=== PATIENT | male | born 1970 | race Caucasian/White ===

== ENCOUNTER 2023-12-12 04:34 | Emergency (ER) | payer OTHER, SELFPAY ==
[2023-12-12 04:35] VITALS: BP 142/94
[2023-12-12 04:58] LABS: % Basophils 0.7 % (0-2); % Eosinophils 2.3 % (0-6); % Immature Granulocytes 0.3 % (0-0.5); % Lymphocytes 32.6 % (20.5-51.1); % Monocytes 10.2 % (1.7-9.3); % Neutrophils 53.9 % (42.2-75.2); Absolute Eosinophils 0.1 10^3/uL (0-0.7); Absolute Monocytes 0.6 10^3/uL (0.1-0.6); Absolute Neutrophils 3.2 10^3/uL (1.4-6.5); Hematocrit 39.8 % (39.0-52.0); Hemoglobin 14.2 g/dL (13.0-18.0); Mean Corp Hgb Conc. 35.7 g/dL (33.0-37.0); Mean Corpuscular Volume 86.9 fL (80.0-94.0); Mean Platelet Volume 10.1 fL (7.4-10.4); Nucleated Red Blood Cells % 0 % (-); Platelet Count 240 10^3/uL (130-400); Red Blood Cell Count 4.58 10^6/uL (4.70-6.10); Red Cell Dist. Width 11.9 % (11.5-14.5)
[2023-12-12 05:23] LABS: Troponin I < 0.012 ng/ml
[2023-12-12 05:48] LABS: ALT (SGPT) 61 U/L (0-50); AST (SGOT) 97 U/L (17-59); Albumin 4.1 g/dl (3.5-5.0); Alkaline Phosphatase 87 U/L (38-126); Blood Urea Nitrogen 17 mg/dl (9-20); Calcium 9.2 mg/dl (8.4-10.2); Carbon Dioxide 24 mmol/L (22-30); Chloride 107 mmol/L (98-107); Glucose 101 mg/dl (70-99); Lipase 218 U/L (23-300); Potassium 3.9 mmol/L (3.5-5.1); Sodium 142 mmol/L (135-145); Total Bilirubin 0.6 mg/dl (0.2-1.3); Total Protein 7.4 g/dl (6.3-8.2); eGFR > 60.00
== END 2023-12-12 05:04 ==
LOC: EMR 04:34
PROVIDERS: Emergency Medicine; EMERGENCY PHYSICIAN Emergency Medicine
DX: R10.10 Upper abdominal pain, unspecified (principal); M54.9 Dorsalgia, unspecified
CPT/HCPCS: 80053; 83690; 84484; 85025; 93005

== ENCOUNTER 2024-10-21 11:43 | Emergency (ER) | payer OTHER, SELFPAY ==
[2024-10-21 11:51] VITALS: BP 119/81
[2024-10-21 12:10] LABS: % Basophils 0.7 % (0-2); % Eosinophils 0.7 % (0-6); % Immature Granulocytes 0.6 % (0-0.5); % Lymphocytes 26.4 % (20.5-51.1); % Monocytes 16.5 % (1.7-9.3); % Neutrophils 55.1 % (42.2-75.2); Absolute Lymphocytes 1.4 10^3/uL (1.2-3.4); Absolute Monocytes 0.9 10^3/uL (0.1-0.6); Hematocrit 42.1 % (39.0-52.0); Hemoglobin 14.8 g/dL (13.0-18.0); Mean Corp Hgb Conc. 35.2 g/dL (33.0-37.0); Mean Corpuscular Hgb 31.4 pg (27.0-31.0); Mean Corpuscular Volume 89.2 fL (80.0-94.0); Mean Platelet Volume 9.8 fL (7.4-10.4); Nucleated Red Blood Cells % 0 % (-); Platelet Count 207 10^3/uL (130-400); Red Blood Cell Count 4.72 10^6/uL (4.70-6.10); Red Cell Dist. Width 12.1 % (11.5-14.5); White Blood Cell Count 5.4 10^3/uL (4.8-10.8)
[2024-10-21 12:30] LABS: ALT (SGPT) 54 U/L (0-50); AST (SGOT) 33 U/L (17-59); Albumin 4.4 g/dl (3.5-5.0); Alkaline Phosphatase 83 U/L (38-126); Blood Urea Nitrogen 18 mg/dl (9-20); Calcium 8.9 mg/dl (8.4-10.2); Carbon Dioxide 22 mmol/L (22-30); Chloride 106 mmol/L (98-107); Glucose 115 mg/dl (70-99); Potassium 4.1 mmol/L (3.5-5.1); Sodium 139 mmol/L (135-145); Total Bilirubin 0.9 mg/dl (0.2-1.3); Total Protein 7.4 g/dl (6.3-8.2); eGFR > 60.00
[2024-10-21 14:00] VITALS: BP 137/90
[2024-10-21 15:29] VITALS: BMI 35.7
[2024-10-21 15:30] VITALS: BP 135/85
[2024-10-21] MEDS: TORADOL 15 MG IV (15:34)
[2024-10-21] MEDS: DECADRON 10 MG IV (15:34)
[2024-10-21] MEDS: UNASYN IV (15:57)
--- NOTE | 2024-10-21 17:39 | ED.GENMED ---
History of Present Illness
<Ronald Palomino PA-C - Last Filed: 10/21/24 19:01>
General
Chief Complaint: Throat Problem
Time Seen by Provider: 10/21/24 14:31
History of Present Illness
History of Present Illness:
54-year-old male presents to the emergency department for evaluation of sore throat. He went to urgent care today where there was concern for peritonsillar abscess and thus sent him to the emergency department. He is able to swallow liquids and
tolerate secretions. Symptoms have been ongoing for the past 3 days, no reported fever or chills.
Past History
<Ronald Palomino PA-C - Last Filed: 10/21/24 19:01>
Past History
ED Past Medical History: HTN (takes) and Other (History of sinusitis. History of swine flu in May. Swine flu ); Negative Arrthythmia or CVA
ED Past Surgical History: Orthopedic (carpal tunnel) and Other (sinus surgery)
Social History
Tobacco: Former smoker
Alcohol: Occasional
Personal:
Living: with family
Employment: Employed ([employer] officer.)
Review of Systems
<Ronald Palomino PA-C - Last Filed: 10/21/24 19:01>
Review of Systems
Allergies reviewed?: Yes
All Other Systems: ROS reviewed and negative except as documented in HPI and ROS
Phy Exam
<Ronald Palomino PA-C - Last Filed: 10/21/24 19:01>
Physical Exam
Physical Exam:
GEN: Well appearing, NAD, WDWN
HEENT: Oral mucosa moist, no scleral icterus. Mild tonsillar hypertrophy to the right tonsil with exudates, mild uvulitis as well. No visible peritonsillar abscess. No trismus. Voice does appear to be somewhat muffled
Cardiac: Regular rate and rhythm with no murmurs
Lung: No respiratory distress, no tachypnea
MSK: No gross deformity or injuries
Skin: Good color, no pallor or jaundice, no rashes
Neuro: AO x3, moves all extremities freely
Psych: Calm, cooperative
Course
<Ronald Palomino PA-C - Last Filed: 10/21/24 19:01>
Orders/Labs/Results
Orders:
Orders
10/21/24 11:57
Complete Blood Count/With Diff Urgent
Comprehensive Metabolic Panel Urgent
10/21/24 15:01
CT Neck With Iv Contrast Urgent
Comment:
Reason For Exam: sore throat poss [employer] ASS[employer]
Dexamethasone Sod Phosphate [Decadron] 10 mg IV NOW STA
Ketorolac [Toradol] 15 mg IV NOW STA
10/21/24 15:37
Ampicillin/Sulbactam 3 G [Unasyn] 3 gm 0.9% Sodium Chloride 100 ml [Nss] 100 ml IV NOW
Abnormal Lab Results
10/21/24
11:57
MCH 31.4 H pg
(27.0-31.0)
Absolute Monos (auto) 0.9 H 10^3/uL
(0.1-0.6)
Immature Gran % 0.6 H %
(0-0.5)
Monocytes % 16.5 H %
(1.7-9.3)
Glucose 115 H mg/dl
(70-99)
ALT 54 H U/L
(0-50)
10/21/24 11:57
10/21/24 11:57
Vital Signs
Initial and Last Documented VS:
Initial Vital Signs
Temp Pulse Resp BP Pulse Ox
98.5 F 83 16 119/81 98
10/21/24 11:51 10/21/24 11:51 10/21/24 11:51 10/21/24 11:51 10/21/24 11:51
Last Documented Vital Signs
Temp Pulse Resp BP Pulse Ox
98.3 F 82 16 135/85 98
10/21/24 14:00 10/21/24 16:00 10/21/24 16:00 10/21/24 15:30 10/21/24 16:00
<Antoine Boss MD - Last Filed: 10/21/24 17:53>
Orders/Labs/Results
Orders:
Orders
10/21/24 11:57
Complete Blood Count/With Diff Urgent
Comprehensive Metabolic Panel Urgent
10/21/24 15:01
CT Neck With Iv Contrast Urgent
Comment:
Reason For Exam: sore throat poss [employer] ASSIST[employer]
Dexamethasone Sod Phosphate [Decadron] 10 mg IV NOW STA
Ketorolac [Toradol] 15 mg IV NOW STA
10/21/24 15:37
Ampicillin/Sulbactam 3 G [Unasyn] 3 gm 0.9% Sodium Chloride 100 ml [Nss] 100 ml IV NOW
Abnormal Lab Results
10/21/24
11:57
MCH 31.4 H pg
(27.0-31.0)
Absolute Monos (auto) 0.9 H 10^3/uL
(0.1-0.6)
Immature Gran % 0.6 H %
(0-0.5)
Monocytes % 16.5 H %
(1.7-9.3)
Glucose 115 H mg/dl
(70-99)
ALT 54 H U/L
(0-50)
10/21/24 11:57
10/21/24 11:57
Vital Signs
Initial and Last Documented VS:
Initial Vital Signs
Temp Pulse Resp BP Pulse Ox
98.5 F 83 16 119/81 98
10/21/24 11:51 10/21/24 11:51 10/21/24 11:51 10/21/24 11:51 10/21/24 11:51
Last Documented Vital Signs
Temp Pulse Resp BP Pulse Ox
98.3 F 82 16 135/85 98
10/21/24 14:00 10/21/24 16:00 10/21/24 16:00 10/21/24 15:30 10/21/24 16:00
<Ronald Palomino PA-C - Last Filed: 10/21/24 19:01>
MDM/Problems Addressed
MDM/Problems Addressed:
Imaging obtained due to the reasonably benign exam coupled with abnormal phonation and this showed no significant abnormalities outside of pharyngitis/tonsillitis. Case was reviewed with attending physician Dr. Boss. We are in agreement at this
time the patient is stable for discharge home on antibiotics and steroids, strict ED return parameters discussed
<Ronald Palomino PA-C - Last Filed: 10/21/24 19:01>
*Critical Care Note
Total Time (30-74mins, 75-104mins- exclusive of procedures): Not Applicable
ED Attending Note
<Ronald Palomino PA-C - Last Filed: 10/21/24 19:01>
-
Portions of this chart may have been created with voice recognition software.� Occasional wrong word or��sound alike� substitutions may have occurred due to the inherent limitations of voice recognition software.
<Antoine Boss MD - Last Filed: 10/21/24 17:53>
ED Attending Note
Patient seen and examined by attending physician: Yes
I performed the substantive portion of visit, reviewed & personally made and approve the management plan that is documented in note by myself or DEREK.: Yes
ED Attending Note:
Sore throat x 3 days. Able to swallow but with pain.
On exam patient is nontoxic in no distress. No drooling no stridor no trismus. Slightly marbled voice but in no distress. Drinking liquids well. No respiratory distress. Lungs clear and equal.
Stable. CT scan reviewed. No abscess or airway issue. Discussed with patient. Medically stable for outpatient management. Ambulated out of the ER in no distress.
Discharge Plan
Departure
Patient Disposition: Home (Routine Discharge)
Date of Disposition: 10/21/24
Time of Disposition: 17:39
Patient with high blood pressure during this ER visit?: No
Discharge Problem:
Pharyngitis
Instructions: Sore Throat, Adult (DC)
Prescriptions:
New
amoxicillin-pot clavulanate 875-125 mg tablet
1 tab PO BID 7 Days Qty: 14 0RF
prednisone 20 mg tablet
40 mg PO DAILY 7 Days Qty: 14 0RF
No Action
Kelly
amoxicillin-pot clavulanate 875 MG/125 MG tablet
1 tab PO Q12 Qty: 20 0RF
hydrocodone-acetaminophen 5 MG/500 MG tablet
1 tab PO .Q4-6HPRN PRN (Reason: PAIN) Qty: 20 0RF
dicyclomine 20 MG tablet
20 mg PO QIDPRN PRN (Reason: stomach cramps) Qty: 20 0RF
Referrals:
Meng Dutta, DO [Family Provider] -
Activity Restrictions/Additional Instructions:
Return if you feel as though your symptoms are worsening, or you have difficulty swallowing liquids/saliva
Interventions
Interventions:
*Risk Screen - Suicide Last Done: 10/21/24 11:51
*General Assessment Last Done: 10/21/24 15:30
*Neglect/Abuse Screening Last Done: 10/21/24 11:51
*ED- Fall Risk Assessment Last Done: 10/21/24 15:30
*ED COVID-19 Vaccine History Last Done: 10/21/24 15:30
*Nursing Disposition Last Done: 10/21/24 17:59
ED-EENT Assessment Last Done: 10/21/24 15:30
ED- Pulmonary Assessment Last Done: 10/21/24 15:30
Discharge Date and Time
Discharge Date/Time: 10/21/24 18:00
Print Language: POLISH
== END 2024-10-21 18:00 | disposition home or self-care (01) ==
LOC: EMR 11:43
PROVIDERS: Student in an Organized Health Care Education/Training Program; EMERGENCY PHYSICIAN Emergency Medicine; FAMILY PHYSICIAN Family Medicine
DX: J02.9 Acute pharyngitis, unspecified (principal); I10 Essential (primary) hypertension
CPT/HCPCS: 99285; 96374; 96375 ×2; 70491; 80053; 85025; Q9967